=== PATIENT | male | born 1980 | race African-American/Black ===

== ENCOUNTER 2023-09-29 18:43 | Inpatient (IN) | payer BC ==
[~2023-09-29] VITALS: Ht 180.3 cm; Wt 146.7 kg
[2023-09-29 19:36] LABS: HEMOGLOBIN 13.5 g/dL (13.5-17.5); LYMPHOCYTES # (AUTO) 1.9 K/uL (1.0-4.8); LYMPHOCYTES % (AUTO) 21.7 % (22.0-44.0); MEAN CORPUSCULAR HEMOGLOBIN 27.4 pg (26.0-34.0); MEAN CORPUSCULAR VOLUME 83 fL (80-100); MONOCYTES # (AUTO) 0.6 K/uL (0.1-1.0); NEUTROPHILS # (AUTO) 5.7 K/uL (1.8-7.7); NEUTROPHILS % (AUTO) 64.3 % (40.0-70.0); PLATELET COUNT (AUTO) 319 K/uL (150-450); RED BLOOD CELL COUNT(AUTO) 4.94 MIL/uL (4.50-5.90); RED CELL DISTRIBUTION WIDTH 15.6 % (11.5-14.5); WHITE BLOOD COUNT (AUTO) 8.9 K/uL (4.5-11.0)
[2023-09-29 19:40] LABS: ANION GAP 8 mmol/L (8-16); CALCIUM, TOTAL 9.2 mg/dL (8.8-10.5); CARBON DIOXIDE 29 mmol/L (22-29); CHLORIDE 105 mmol/L (98-107); CREATININE 1.24 mg/dL (0.60-1.30); GLOMERULAR FILTR. RATE CALC > 60 mL/min (>60); GLUCOSE,RANDOM 129 mg/dL (70-110); POTASSIUM 3.7 mmol/L (3.5-5.1); SODIUM SERUM 142 mmol/L (136-145); UREA NITROGEN, BLOOD 14 mg/dL (7-18)
[2023-09-29 19:49] LABS: ALANINE AMINOTRANSFERASE 33 U/L (12-78); ALBUMIN 3.1 g/dL (3.4-5.0); ALCOHOL, BLOOD (SERUM) < 3 mg/dL (0-10); ALKALINE PHOSPHATASE 90 U/L (46-116); ASPARTATE AMINOTRANSFERASE 16 U/L (15-37); BILIRUBIN,TOTAL 0.3 mg/dL (0.1-1.0); TOTAL PROTEIN, SERUM 6.3 g/dL (6.4-8.2)
[2023-09-29 20:30] LABS: COVID AG,FIA SOURCE NPH
[2023-09-29 20:52] LABS: SARS-COV2 (COVID) ANTIGEN,FIA Negative (Negative)
[2023-09-30 05:36] LABS: APPEARANCE,URINE CLEAR (CLEAR); BILIRUBIN,URINE NEGATIVE (NEGATIVE); COLOR,URINE LIGHT YELLOW (YELLOW); GLUCOSE, URINE (UA) NEGATIVE (NEGATIVE); KETONES,URINE NEGATIVE (NEGATIVE); LEUKOCYTE ESTERASE ,URINE NEGATIVE (NEGATIVE); NITRATE,URINE NEGATIVE (NEGATIVE); OCCULT BLOOD,URINE NEGATIVE (NEGATIVE); PROTEIN,URINE NEGATIVE (NEGATIVE); SPECIFIC GRAVITIY, URINE 1.024 (1.003-1.030); UROBILINOGEN,URINE <=1.0 mg/dL (<=1.0)
[2023-09-30 05:42] LABS: ALCOHOL, URINE DRUG SCREEN NEGATIVE (NEGATIVE); AMPHET/METH SCREEN,URINE NEGATIVE (NEGATIVE); BARBITURATE SCREEN, URINE NEGATIVE (NEGATIVE); BENZODIAZEPINES SCREEN,URINE NEGATIVE (NEGATIVE); CANNABINOID SCREEN,URINE NEGATIVE (NEGATIVE); COCAINE SCREEN,URINE NEGATIVE (NEGATIVE); METHADONE SCREEN, URINE NEGATIVE (NEGATIVE); OPIATE SCREEN,URINE NEGATIVE (NEGATIVE); PHENCYCLIDINE SCREEN,URINE NEGATIVE (NEGATIVE)
[2023-10-01] MEDS: ZOLPIDEM TARTRATE 10 MG TABLET PO PRN (00:36)
[2023-10-01 01:20] VITALS: BP 145/93; PULSE 86; RESP 18; TEMP 98.2; O2SAT 98
[2023-10-01] MEDS ORDERED: ACETAMINOPHEN 325 MG TABLET PO PRN (07:15)
[2023-10-01] MEDS ORDERED: LOPERAMIDE HCL 2 MG CAPSULE PO PRN (07:15)
[2023-10-01] MEDS ORDERED: MAG HYDROX/ALUMINUM HYD/SIMETH ES 30 ML SUSPENSION UDCUP PO PRN (07:15)
[2023-10-01] MEDS ORDERED: GuaiFENesin/D-METHORPHAN [SUGAR-FREE] 200-20MG/10 ML SYRUP UDCUP PO PRN (07:15)
[2023-10-01] MEDS ORDERED: DOCUSATE SODIUM 100 MG CAPSULE PO PRN (07:15)
[2023-10-01] MEDS ORDERED: ALBUTEROL SULFATE HFA 90 MCG/PUFF 8 GM INHALER IH PRN (07:15)
[2023-10-01] MEDS ORDERED: NICOTINE 14 MG/24 HOUR PATCH TD PRN (07:15)
[2023-10-01] MEDS ORDERED: MAGNESIUM HYDROXIDE SUSPENSION 30 ML UDCUP PO PRN (07:15)
[2023-10-01] MEDS ORDERED: CloNIDine HCL 0.1 MG TABLET PO PRN (07:15)
[2023-10-01] MEDS ORDERED: ONDANSETRON HCL 4 MG TABLET PO PRN (07:15)
[2023-10-01 09:08] VITALS: BP 11/85; PULSE 86; RESP 19; TEMP 98.9; O2SAT 97
[2023-10-01] MEDS: BuPROPion HCL XL 150 MG ER TABLET PO SCH (15:30)
[2023-10-01 21:54] VITALS: BP 129/87; PULSE 76; RESP 18; TEMP 97.9; O2SAT 98
[2023-10-02 07:51] LABS: HEMOGLOBIN A1C 5.3 % (3.8-5.6)
[2023-10-02 08:03] LABS: CHOL/HDL RATIO 3.9 (4.2-7.3); THYROID STIMULATING HORMONE 2.92 uIU/mL (0.36-3.74)
[2023-10-02 09:06] VITALS: BP 130/82; PULSE 83; RESP 19; TEMP 96.8; O2SAT 99
[2023-10-02 20:58] VITALS: BP 105/79; PULSE 81; RESP 18; TEMP 98.1; O2SAT 97
[2023-10-03 08:05] VITALS: BP 131/92; PULSE 82; RESP 18; TEMP 97.9; O2SAT 96
[2023-10-03 21:29] VITALS: BP 128/79; PULSE 89; RESP 18; TEMP 98.2; O2SAT 98
[2023-10-04 11:24] VITALS: BP 132/86; PULSE 79; RESP 18; TEMP 97.7; O2SAT 96
[2023-10-04 13:30] VITALS: BP 130/79; PULSE 80; RESP 19; TEMP 98; O2SAT 98
[2023-10-04] MEDS: IBUPROFEN 400 MG TABLET PO PRN (13:30)
[2023-10-04 20:12] VITALS: BP 152/97; PULSE 100; RESP 18; TEMP 96.9; O2SAT 98
[2023-10-04 21:35] LABS: GLUCOMETER DEV NAME(LOC) 3EX.2; GLUCOSE,POINT OF CARE 115 MG/DL (70-110)
[2023-10-05 08:07] VITALS: BP 115/70; PULSE 91; RESP 18; TEMP 98.1; O2SAT 96
[2023-10-05 22:00] VITALS: BP 122/77; PULSE 85; RESP 18; TEMP 98.9; O2SAT 97
[2023-10-06] MEDS: PETROLATUM,WHITE 28 GM JELLY TP PRN (00:12)
[2023-10-06] MEDS: LORazepam 2 MG TABLET PO PRN (09:17)
[2023-10-06 09:40] VITALS: BP 126/77; PULSE 77; RESP 18; TEMP 97; O2SAT 97
[2023-10-06] MEDS: ARIPiprazole 10 MG TABLET PO SCH (12:39)
[2023-10-06 20:45] VITALS: BP 127/81; PULSE 81; RESP 18; TEMP 97.8; O2SAT 98
[2023-10-06] MEDS: HALOPERIDOL 5 MG TABLET PO PRN (20:46)
[2023-10-07 12:07] VITALS: BP 125/79; PULSE 89; RESP 18; TEMP 97.5; O2SAT 96
[2023-10-07 20:52] VITALS: BP 131/81; PULSE 90; RESP 18; TEMP 98.1; O2SAT 97
[2023-10-08 09:38] VITALS: BP 133/79; PULSE 87; RESP 19; TEMP 98.1; O2SAT 96
[2023-10-08 21:53] VITALS: BP 118/84; PULSE 91; RESP 18; TEMP 98.9; O2SAT 96
[2023-10-09] MEDS: BuPROPion HCL XL 150 MG ER TABLET PO SCH (08:24)
[2023-10-09 10:14] VITALS: BP 132/92; PULSE 99; RESP 18; TEMP 97.8; O2SAT 96
[2023-10-09 16:30] LABS: COVID AG,FIA SOURCE NASAL SWAB
[2023-10-09 16:53] LABS: SARS-COV2 (COVID) ANTIGEN,FIA Negative (Negative)
[2023-10-09 20:27] VITALS: BP 109/74; PULSE 95; RESP 18; TEMP 98.1; O2SAT 97
[2023-10-10] MEDS ORDERED: ARIP10TA38 PO ×2 (09:35→13:05)
[2023-10-10] MEDS ORDERED: BUPR-345 PO (09:35)
[2023-10-10 10:45] VITALS: BP 127/94; PULSE 104; RESP 18; TEMP 96.8
[2023-10-10] MEDS ORDERED: BUPR-514 PO (13:05)
== END 2023-10-10 12:00 | disposition home or self-care (01) | DRG 885 ==
LOC: EMS 18:50 → 3EI 10-01 00:23
PROVIDERS: ADMIT Psychiatry & Neurology Child & Adolescent Psychiatry; ATTEND Psychiatry & Neurology Child & Adolescent Psychiatry
PROC: GZHZZZZ Group Psychotherapy (ICD-10-PCS; principal; 2023-10-01)
PROC: GZ52ZZZ Individual Psychotherapy, Cognitive (ICD-10-PCS; 2023-10-02)
DX: F33.3 Major depressive disorder, recurrent, severe with psychotic symptoms (principal); R45.851 Suicidal ideations; Z68.42 Body mass index [BMI] 45.0-49.9, adult; R73.9 Hyperglycemia, unspecified; Z20.822 Contact with and (suspected) exposure to COVID-19; G47.00 Insomnia, unspecified; E66.01 Morbid (severe) obesity due to excess calories; R03.0 Elevated blood-pressure reading, without diagnosis of hypertension; F64.0 Transsexualism
CPT/HCPCS: 80053; 80061; 80307; 81003; 82962; 83036; 84443; 85025; G0480